=== PATIENT | female | born 1940 | race Caucasian/White ===

== ENCOUNTER 2017-06-11 23:45 | Emergency (ER) | payer MEDICARE, OTHER ==
[2017-06-12] MEDS ORDERED: Labetalol 20 MG/4 ML Syringe IVPUSH ONE (00:05)
[2017-06-12] MEDS ORDERED: Sodium Chloride 0.9% 250 ML IV SCH (00:05)
[2017-06-12] MEDS ORDERED: Labetalol 20 MG/4 ML Syringe ONE (00:05)
[2017-06-12 07:46] VITALS: BP 149/79
--- NOTE | 2017-06-12 09:01 | ER ---
DATE SEEN: 06/11/2017 CHIEF COMPLAINT: Hypertension. HISTORY OF PRESENT ILLNESS: This is a 77-year-old female with hypertension. She complains of elevated blood pressure measurements overnight up to 190 systolic. However, she is asymptomatic. Denies headaches, chest pain, or shortness of breath. ALLERGIES: Amoxicillin. SOCIAL: Does not smoke. MEDICATIONS: Losartan. PHYSICAL EXAMINATION: GENERAL: She is not in distress and comfortable. VITAL SIGNS: Initial blood pressure was measured at 229/120. EARS, NOSE AND THROAT: Negative. NECK: Supple. CHEST: Clear. CARDIOVASCULAR: Normal. IMPRESSION: Hypertensive urgency. PLAN: I gave 20 mg of IV labetalol. Blood pressure did come down to 155/82. I discharged her home to sleep and see a physician in the morning. Time seen was 2345 hours. /[id number] NIVIA/MARTA
== END 2017-06-12 01:20 | disposition home or self-care (01) ==
LOC: FB.ED 23:45
DX: I16.0 Hypertensive urgency (principal); Z88.1 Allergy status to other antibiotic agents
CPT/HCPCS: 96361; 96374; 99282; J7050; 99283

== ENCOUNTER 2018-10-24 01:09 | Emergency (ER) | payer MEDICARE, OTHER ==
[2018-10-24] MEDS ORDERED: Furosemide 40 MG Tab PO ONE (01:41)
--- NOTE | 2018-10-24 01:47 | EDM.PDOC ---
ED HPI GENERAL MEDICAL PROBLEM - General Stated Complaint: HIGH BLOOD PRESSURE Time Seen by Provider: 10/24/18 01:24 Source of Information: Reports: Patient History Limitations: Reports: No Limitations - History of Present Illness INITIAL COMMENTS - FREE TEXT/NARRATIVE: This pleasant 78-year-old woman had onset of increased blood pressure this evening blood pressure 200/120 on her home monitoring blood pressure machine. On arrival blood pressure 198/96 and now after she has been in the ED for 10 minutes blood pressure is 178/91. She denies chest pain shortness of breath cough orthopnea dyspnea palpitations atrial fibrillation cancer asthma. She has a recent weight gain of 2 lbs. She denies recent change in her medicines. She is not on a diuretic. She has had increase swelling of the legs the past week. She notes she took an extra 100 mg losartan this evening and metoprolol 50 mg more than her usual 50 mg losartan in the evening. She usually only takes one tablet of metoprolol 50 mg long-acting in the morning. She was "her own doctor" tonight because she saw her pressure was elevated and she just took extra medicines: "an extra 150 mg of blood pressure medicines". She took her usual 5 mg amlodipine this evening. She was seen by her chiropractor on 10/18/18. He apparently had concerned about "a crooked back". And manipulation of her back and she notes her right hip that is "out". She has more discomfort with walking. Since then she's had increased swelling of her ankle. She denies history of aneurysm or bowel discomfort change in her bowels diarrhea or constipation hematochezia or black tarry stool or anemia. Past medical history is significant for three-vessel CABG several years ago. She is without chest pain - Related Data Allergies Allergy/AdvReac Type Severity Reaction Status Date / Time amoxicillin [Amoxicillin] Allergy Rash Verified 10/24/18 02:01 Home Meds: Home Meds Multivitamin with Minerals [Multiple Vitamin] 1 ea PO DAILY 06/10/16 [History] Naproxen Sodium [Aleve] 440 mg PO ASDIRECTED PRN 06/10/16 [History] Losartan [Cozaar] 100 mg PO DAILY 06/12/17 [History] .Metoprolol 50 mg PO DAILY 10/24/18 [History] Potassium Chloride 20 meq PO BID #20 tab.er.prt 10/24/18 [Rx] amLODIPine Besylate [Amlodipine Besylate] 5 mg PO BEDTIME 10/24/18 [History] Past Medical History HEENT History: Reports: Impaired Vision Cardiovascular History: Reports: High Cholesterol, Hypertension Gastrointestinal History: Reports: [employer] History: Reports: , Spontaneous Musculoskeletal History: Reports: Arthritis, Back Pain, Chronic - Infectious Disease History Infectious Disease History: Reports: Chicken Pox, Measles - Past Surgical History Neurological Surgical History: Reports: Spinal Fusion Musculoskeletal Surgical History: Reports: Joint Replacement, Knee Replacement, Other (See Below) Social & Family History - Caffeine Use Caffeine Use: Reports: Coffee ED ROS GENERAL - Review of Systems Review Of Systems: ROS reveals no pertinent complaints other than HPI. ED EXAM, GENERAL - Physical Exam Exam: See Below Free Text/Narrative:: Patient alert all muscle well nourished slightly anxious woman who is attended by her grandson Exam Limited By: No Limitations General Appearance: Alert, WD/WN Eye Exam: Bilateral Eye: Normal Fundi (No AV nicking no hemorrhages), Normal Inspection Ears: Normal External Exam, Normal Canal, Normal TMs Ear Exam: Bilateral Ear: Auricle Normal, Canal Normal, TM normal Nose: Normal Inspection Throat/Mouth: Normal Inspection, Normal Lips, Normal Teeth, Normal Gums, Normal Oropharynx, Normal Voice Head: Atraumatic, Normocephalic Neck: Normal Inspection, Supple, Non-Tender, Full Range of Motion, Other (No carotid bruit) Respiratory/Chest: No Respiratory Distress, Lungs Clear, Normal Breath Sounds, No Accessory Muscle Use, Chest Non-Tender Cardiovascular: Normal Peripheral Pulses, Regular Rate, Rhythm, No JVD, No Rub, Systolic Murmur (Soft systolic murmur 2+ pedal edema S3 gallop), Gallop/S3, Other (2+ pedal edema) Peripheral Pulses: 1+: Radial (L), Radial (R), Dorsalis Pedis (L), Dorsalis Pedis (R) GI/Abdominal: Normal Bowel Sounds, Soft, Non-Tender, No Organomegaly, No Distention, No Abnormal Bruit, No Mass, Rigid (Female) Exam: Deferred Rectal (Female) Exam: Deferred Extremities: Normal Inspection, Normal Range of Motion, Non-Tender, Pedal Edema Neurological: Alert, Oriented, CN II-XII Intact, Normal Cognition, Normal Gait, Normal Reflexes, No Motor/Sensory Deficits Psychiatric: Normal Affect, Normal Mood EKG INTERPRETATION Rhythm: NSR Jackson: LAD-Left Jackson Deviation P-Wave: Present QT: Normal EKG Interpretation Comments: Inferior infarct old, LVH, secondary repolarization abnormality. Abnormal EKG Course - Vital Signs Last Recorded V/S: Last Vital Signs Temp 37.0 C 10/24/18 01:10 Pulse Resp BP Pulse Ox - Orders/Labs/Meds Orders: Active Orders 24 hr Category Date Time Status MAGNESIUM [CHEM] Stat Lab 10/24/18 01:52 Received Labs: Laboratory Tests 10/24/18 10/24/18 10/24/18 Range/Units 01:52 01:52 01:52 WBC 6.2 (4.5-12.0) X10-3/uL RBC 4.28 (3.23-5.20) x10(6)uL Hgb 13.0 (11.5-15.5) g/dL Hct 39.6 (30.0-51.3) % MCV 92.5 (80-96) fL MCH 30.4 (27.7-33.6) pg MCHC 32.8 (32.2-35.4) g/dL RDW 13.4 (11.5-15.5) % Plt Count 321 (125-369) X10(3)uL MPV 7.8 (7.4-10.4) fL Neut % (Auto) 70.3 (46-82) % Lymph % (Auto) 15.2 (13-37) % [place] % (Auto) 9.6 (4-12) % Eos % (Auto) 4 (1.0-5.0) % Baso % (Auto) 1 (0-2) % Neut # (Auto) 4.4 (1.6-8.3) # Lymph # (Auto) 0.9 (0.6-5.0) # [place] # (Auto) 0.6 (0.0-1.3) # Eos # (Auto) 0.3 (0.0-0.8) # Baso # (Auto) 0.0 (0.0-0.2) # Sodium 143 (135-145) mmol/L Potassium 2.4 L* (3.5-5.3) mmol/L Chloride 104 (100-110) mmol/L Carbon Dioxide 34 H (21-32) mmol/L BUN 18 (7-18) mg/dL Creatinine 0.9 (0.55-1.02) mg/dL Est Cr Clr Drug Dosing TNP Estimated GFR (MDRD) > 60 (>60) BUN/Creatinine Ratio 20.0 (9-20) Glucose 115 (80-116) mg/dL Calcium 9.1 (8.6-10.2) mg/dL Total Bilirubin 0.4 (0.1-1.3) mg/dL AST 31 H (5-25) IU/L ALT 27 (12-36) U/L Alkaline Phosphatase 93 (56-112) IU/L Troponin I < 0.017 L (<0.017-0.056) ng/mL NT-Pro-B Natriuret Pep (<=450) pg/mL Total Protein 6.9 (6.0-8.0) g/dL Albumin 3.2 (3.2-4.6) g/dL Globulin 3.7 g/dL Albumin/Globulin Ratio 0.9 10/24/18 Range/Units 01:52 WBC (4.5-12.0) X10-3/uL RBC (3.23-5.20) x10(6)uL Hgb (11.5-15.5) g/dL Hct (30.0-51.3) % MCV (80-96) fL MCH (27.7-33.6) pg MCHC (32.2-35.4) g/dL RDW (11.5-15.5) % Plt Count (125-369) X10(3)uL MPV (7.4-10.4) fL Neut % (Auto) (46-82) % Lymph % (Auto) (13-37) % [place] % (Auto) (4-12) % Eos % (Auto) (1.0-5.0) % Baso % (Auto) (0-2) % Neut # (Auto) (1.6-8.3) # Lymph # (Auto) (0.6-5.0) # [place] # (Auto) (0.0-1.3) # Eos # (Auto) (0.0-0.8) # Baso # (Auto) (0.0-0.2) # Sodium (135-145) mmol/L Potassium (3.5-5.3) mmol/L Chloride (100-110) mmol/L Carbon Dioxide (21-32) mmol/L BUN (7-18) mg/dL Creatinine (0.55-1.02) mg/dL Est Cr Clr Drug Dosing Estimated GFR (MDRD) (>60) BUN/Creatinine Ratio (9-20) Glucose (80-116) mg/dL Calcium (8.6-10.2) mg/dL Total Bilirubin (0.1-1.3) mg/dL AST (5-25) IU/L ALT (12-36) U/L Alkaline Phosphatase (56-112) IU/L Troponin I (<0.017-0.056) ng/mL NT-Pro-B Natriuret Pep 477 H (<=450) pg/mL Total Protein (6.0-8.0) g/dL Albumin (3.2-4.6) g/dL Globulin g/dL Albumin/Globulin Ratio Meds: Medications Discontinued Medications Generic Name Dose Route Start Last Admin Trade Name Freq PRN Reason Stop Dose Admin Furosemide 40 mg 10/24/18 01:41 10/24/18 01:55 Lasix PO 10/24/18 01:42 40 mg ONETIME ONE Administration Potassium Chloride 40 meq 10/24/18 02:16 10/24/18 02:47 Klor-Con M20 PO 10/24/18 02:17 40 meq ONETIME ONE Administration Potassium Chloride 40 meq 10/24/18 02:17 10/24/18 03:24 Potassium Chloride Solution PO 10/24/18 02:18 40 meq ONETIME ONE Administration - Re-Assessments/Exams Free Text/Narrative Re-Assessment/Exam: 10/24/18 03:41 Patient's blood pressure came down to 169/78. There are no evidence for arrhythmias on the monitor. She did not have chest pain or shortness of breath. But she had significant 2+ pedal edema lower extremities consequently she received 40 mg of Lasix orally. Departure - Departure Time of Disposition: 03:20 (Patient had an elevated blood pressure at home of a 200/120 early in the ED her BP was 198/96. The slowly came down to 178/91 then came down further to 169/78 before departure. She was asymptomatic but became concerned about her elevated pressure she measured at home which was 220/120. At this point she took an extra 50 mg of losartan for total 100 mg losartan this evening and an extra metoprolol long-acting dose 50 mg. She took her usual amlodipine 5 mg at at bedtime. Her EKG demonstrates inferior infarction old and also lateral wall ischemia. LVH. There is poor progression of R waves across the anterior precordium suggests she is also had an anterior myocardial infarction. That was not annotated by the computerized reading. Perhaps the anterior changes reflect her 2 -vessel CABG 3 years ago. 3 years ago she was told by her security systems engineer not to take extra potassium. Perhaps that's the reason why she has such a low potassium at 2.2 todayhypokalemia. He was given 80 mg potassium chloride in the ED. I will get 20 mEq twice a day for the next 7 days. She'll follow-up with her Dr. to get a repeat check of her tests and electrolytes in a week. Earlier if worse. Also her EKG has poor R-wave progression across the anterior precordium, reflecting and old anterior myocardial infarction or this may be mirror her 2 vessel CABG surgery.) Disposition: Home, Self-Care 01 Condition: Good Clinical Impression: CHF, Congestive heart failure, Old inferior wall myocardial infarction, S/P CABG x 2, Edema extremities, Cardiac ischemia, Hypokalemia due to inadequate potassium intake, Labile hypertension - Discharge Information *PRESCRIPTION DRUG MONITORING PROGRAM REVIEWED*: Not Applicable *COPY OF PRESCRIPTION DRUG MONITORING REPORT IN PATIENT [facility]: Not Applicable Prescriptions: Potassium Chloride 20 meq PO BID #20 tab.er.prt Instructions: Hypokalemia, Hypertension Referrals: Ngoc Hewitt PA [Primary Care Provider] - Forms: ED Department Discharge Additional Instructions: You have swelling of your ankles. The swelling is probably secondary to poor heart muscle contraction, ie decreased cardiac output. With low potassium. Your heart function is diminished. Your low potassium could be causing your decreased cardiac output (pump output). Normally potassium is not usually prescribed with and angiotensin II pallavi ( Losartan) but your total body potassium is very low. So you have been prescribed potassium chloride 20 meq, for you to take 1 tab twice a day and have your blood potassium rechecked in a week. you kidney function is good. follow up with your MD 1 week your magnesium was checked but the lab has not completed the evaluation yet. you have taken extra medications tonight on your own, instead of your usual 50 mg of Losartan you took a total of 100 mg and instead of taking zero long acting metoprolol you took an extra 50 mg of metoprolol for a total of 100mg today (50 mg in the AM and 50 mg now). It is difficult to predict what your BP is going to be in the AM on the basis of your taking these extra pills. so instead of just adding more medications It would be better if you: 1) take the same medication doses you normally take. 2) take the potassium 20 meq twice a day. 3) write down 4-6 different BP measurements during the day and call them into your MD Thursday or Thursday. 4) and /or see your MD Thursday or Thursday or radha in the week. 5) recheck your potassium in 1 week - My Orders Last 24 Hours: My Active Orders 10/24/18 01:52 MAGNESIUM [CHEM] Stat - Assessment/Plan Last 24 Hours: My Active Orders 10/24/18 01:52 MAGNESIUM [CHEM] Stat
[2018-10-24] MEDS ORDERED: Potassium Chloride 20 MEQ Tab.ER PO ONE (02:16)
[2018-10-24] MEDS ORDERED: Potassium Chloride 10% 20 MEQ/15 ML Soln 15 ML UD Cup PO ONE (02:17)
[2018-10-24] MEDS ORDERED: Potassium Chloride 20 MEQ Tab.ER ONE (02:46)
[2018-10-24] MEDS ORDERED: Potassium Chloride 10% 20 MEQ/15 ML Soln 15 ML UD Cup ONE (03:24)
[2018-10-24 04:31] VITALS: BP 164/76
== END 2018-10-24 03:40 | disposition home or self-care (01) ==
LOC: FB.ED 01:09
DX: I11.0 Hypertensive heart disease with heart failure (principal); I50.9 Heart failure, unspecified; I25.2 Old myocardial infarction; E87.6 Hypokalemia; I25.9 Chronic ischemic heart disease, unspecified; Z88.1 Allergy status to other antibiotic agents; Z79.899 Other long term (current) drug therapy; Z95.1 Presence of aortocoronary bypass graft
CPT/HCPCS: 36415; 80053; 83735; 83880; 84484; 85025; 93005; 99283; A9270-GY